=== PATIENT | male | born 1950 | race American Indian/Alaskan Native ===

== ENCOUNTER 2016-11-15 14:24 | Emergency (ER) | payer MEDICAID, OTHER ==
[~2016-11-15] VITALS: Ht 165.1 cm; Wt 59.9 kg
[2016-11-15 14:24] VITALS: BP_SYST 143
[2016-11-15 15:04] LABS: BASOPHILS % (AUTO) 0.5 % (0.0-2.0); EOSINOPHILS # (AUTO) 0.2 K/uL (0.0-0.4); EOSINOPHILS % (AUTO) 2.6 % (0.0-4.0); HEMATOCRIT 43.3 % (36-54); HEMOGLOBIN 14.2 g/dL (14.0-18.0); LYMPHOCYTES % (AUTO) 25.7 % (20.5-51.5); MEAN CORPUSCULAR HEMOGLOBIN 29 pg (27-31); MEAN CORPUSCULAR HGB CONC 33 % (32-36); MEAN CORPUSCULAR VOLUME 88 fL (79.0-98.0); MONOCYTES # (AUTO) 0.6 K/uL (0.0-1.0); MONOCYTES % (AUTO) 8.1 % (1.7-9.3); NEUTROPHILS # (AUTO) 5.1 K/uL (1.8-7.7); NEUTROPHILS % (AUTO) 63.1 % (40.0-70.0); PLATELET COUNT (AUTO) 241 K/uL (130-430); RED BLOOD CELL COUNT(AUTO) 4.93 MIL/uL (4.2-6.2); RED CELL DISTRIBUTION WIDTH 12.6 % (9.0-15.0); WHITE BLOOD COUNT (AUTO) 7.9 K/uL (4.8-10.8)
[2016-11-15 15:07] LABS: CALCIUM 8.5 mg/dL (8.4-11.0); CREATININE 0.75 mg/dL (0.55-1.30); POTASSIUM 3.7 mmol/L (3.5-5.1)
[2016-11-15 15:12] LABS: ALBUMIN 3.5 g/dL (3.4-4.8); TOTAL BILIRUBIN 0.4 mg/dL (0.0-1.0); TOTAL PROTEIN, SERUM 7.1 g/dL (6.4-8.3)
[2016-11-15 16:26] VITALS: BP_SYST 138
== END 2016-11-15 16:26 | disposition home or self-care (01) ==
LOC: SED 14:25
DX: J40 Bronchitis, not specified as acute or chronic (principal); Z88.0 Allergy status to penicillin; Z88.6 Allergy status to analgesic agent
CPT/HCPCS: 36415; 71010; 80053; 82550-TC; 83880; 84484; 85025; 85379; 85610-TC; 85730-TC; 93005; 99285

== ENCOUNTER 2018-10-10 11:33 | Inpatient (IN) | payer OTHER, MEDICAID ==
[~2018-10-10] VITALS: Ht 165.1 cm; Wt 59.9 kg
[2018-10-10] MEDS ORDERED: NACL 0.9% 1,000 ML IV ONE (11:47)
[2018-10-10 11:48] VITALS: BP_SYST 135
[2018-10-10] MEDS ORDERED: PANTOPRAZOLE SODIUM 40 MG/VIAL (PROTONIX) IVP ONE (12:00)
[2018-10-10] MEDS ORDERED: ASPIRIN 81 MG TAB.CHEW PO ONE (12:00)
[2018-10-10 12:06] LABS: BASOPHILS % (AUTO) 0.7 % (0.0-2.0); EOSINOPHILS # (AUTO) 0.1 K/uL (0.0-0.4); HEMATOCRIT 47.8 % (36-54); HEMOGLOBIN 15.9 g/dL (14.0-18.0); LYMPHOCYTES # (AUTO) 1.8 K/uL (1.0-5.5); LYMPHOCYTES % (AUTO) 33.6 % (20.5-51.5); MEAN CORPUSCULAR HEMOGLOBIN 30 pg (27-31); MEAN CORPUSCULAR HGB CONC 33 % (32-36); MEAN CORPUSCULAR VOLUME 89 fL (79.0-98.0); MONOCYTES # (AUTO) 0.5 K/uL (0.0-1.0); MONOCYTES % (AUTO) 8.4 % (1.7-9.3); NEUTROPHILS % (AUTO) 55.3 % (40.0-70.0); PLATELET COUNT (AUTO) 219 K/uL (130-430); RED BLOOD CELL COUNT(AUTO) 5.34 MIL/uL (4.2-6.2); RED CELL DISTRIBUTION WIDTH 13.5 % (9.0-15.0); WHITE BLOOD COUNT (AUTO) 5.4 K/uL (4.8-10.8)
[2018-10-10 12:14] LABS: ANION GAP 7 (5-15); CALCIUM 9.4 mg/dL (8.4-11.0); CHLORIDE 103 mmol/L (98-107); CREATININE 0.81 mg/dL (0.55-1.30); GFR AFRICAN AMERICAN 122 mL/min (>90); GLUCOSE 95 mg/dL (70-99); POTASSIUM 4.2 mmol/L (3.5-5.1); SODIUM SERUM 139 mmol/L (136-145); UREA NITROGEN, BLOOD 12 mg/dL (8-21)
[2018-10-10 12:19] LABS: PROTHROMBIN TIME 10.1 SECS (9.5-12.5)
[2018-10-10 12:30] LABS: ALANINE AMINOTRANSFERASE 35 U/L (12-78); ALBUMIN 3.7 g/dL (3.4-4.8); ASPARTATE AMINOTRANSFERASE 27 U/L (10-37); TOTAL BILIRUBIN 0.5 mg/dL (0.0-1.0)
[2018-10-10] MEDS ORDERED: FAMO-132 PO (12:35)
[2018-10-10] MEDS ORDERED: PRO40 PO (12:35)
[2018-10-10] MEDS ORDERED: LIP20 PO (12:35)
[2018-10-10] MEDS ORDERED: NITROGLYCERIN 1 INCH (GM) OINT. TP ONE (12:45)
[2018-10-10] MEDS ORDERED: fentaNYL CITRATE/PF 100 MCG/2 ML AMP IVP ONE (12:45)
[2018-10-10 13:44] VITALS: BP_SYST 117
[2018-10-10] MEDS ORDERED: ATORVASTATIN 20 MG TABLET PO ONE (16:00)
[2018-10-10 16:20] VITALS: BP_SYST 100
[2018-10-10] MEDS ORDERED: MORPHINE 4 MG/ML INJ. SYRINGE IVP PRN (19:45)
[2018-10-10] MEDS ORDERED: ONDANSETRON HCL 4 MG/2 ML VIAL IVP PRN (19:45)
[2018-10-10] MEDS ORDERED: MORPHINE 2 MG/ML INJ. SYRINGE IVP PRN (19:45)
[2018-10-10] MEDS ORDERED: fentaNYL CITRATE/PF 100 MCG/2 ML AMP IVP PRN ×2 (19:45)
[2018-10-10] MEDS ORDERED: ACETAMINOPHEN 325 MG TABLET PO PRN (19:45)
[2018-10-10 20:00] VITALS: BP_SYST 100
[2018-10-11 00:13] VITALS: BP_SYST 98
[2018-10-11 08:00] VITALS: BP_SYST 123
[2018-10-11] MEDS: FAMOTIDINE 20 MG TABLET PO SCH (08:28)
[2018-10-11] MEDS: ATORVASTATIN 20 MG TABLET PO SCH (08:28)
[2018-10-11] MEDS: PANTOPRAZOLE SODIUM 40 MG TAB PO SCH (08:28)
[2018-10-11 12:00] VITALS: BP_SYST 125
[2018-10-11 16:26] VITALS: BP_SYST 129
[2018-10-11 20:00] VITALS: BP_SYST 124
[2018-10-11] MEDS ORDERED: OMEPRAZOLE 20 MG CAPSULE.DR (PriLOSEC) ONE (22:04)
[2018-10-12 00:07] VITALS: BP_SYST 107
[2018-10-12] MEDS: PANTOPRAZOLE SODIUM 40 MG TAB PO SCH (08:06)
[2018-10-12] MEDS: FAMOTIDINE 20 MG TABLET PO SCH (08:06)
[2018-10-12] MEDS: ATORVASTATIN 20 MG TABLET PO SCH (08:06)
[2018-10-12 08:15] VITALS: BP_SYST 125
[2018-10-12] MEDS ORDERED: OMEPRAZOLE 20 MG CAPSULE.DR (PriLOSEC) PO SCH (09:00)
[2018-10-12 11:39] VITALS: BP_SYST 103
[2018-10-12 11:57] VITALS: BP_SYST 103
== END 2018-10-12 13:00 | disposition home or self-care (01) | DRG 392 ==
LOC: SED 11:33 → STU 12:57
PROVIDERS: ADMIT Internal Medicine Hospice and Palliative Medicine; ATTEND Internal Medicine Hospice and Palliative Medicine
DX: K21.9 Gastro-esophageal reflux disease without esophagitis (principal); E78.5 Hyperlipidemia, unspecified; I10 Essential (primary) hypertension; M19.011 Primary osteoarthritis, right shoulder; I07.1 Rheumatic tricuspid insufficiency; R73.03 Prediabetes; Y99.0 Civilian activity done for income or pay; Z79.899 Other long term (current) drug therapy; Z87.11 Personal history of peptic ulcer disease; Z87.891 Personal history of nicotine dependence; Z90.49 Acquired absence of other specified parts of digestive tract
CPT/HCPCS: 36415; 71045; 80053; 84484; 85025; 85610-TC; 85730-TC; 93005; 93306; 96361; 96374; 96375; 99285; C9113; G0378; J3010

== ENCOUNTER 2019-04-01 02:02 | Inpatient (IN) | payer OTHER, MEDICAID ==
[~2019-04-01] VITALS: Ht 165.1 cm; Wt 59.9 kg
[~2019-04-01 02:02] MED LIST: FAMO-132 PO; LIP20 PO; PRO40 PO
[2019-04-01 02:45] VITALS: BP_SYST 120
[2019-04-01] MEDS ORDERED: ONDANSETRON HCL 4 MG/2 ML VIAL IVP ONE (03:00)
[2019-04-01] MEDS ORDERED: NACL 0.9% 1,000 ML IV ONE ×2 (03:00→04:45)
[2019-04-01] MEDS ORDERED: PANTOPRAZOLE SODIUM 40 MG/VIAL (PROTONIX) IVP ONE (03:00)
[2019-04-01 03:56] LABS: BASOPHILS % (AUTO) 0.4 % (0.0-2.0); EOSINOPHILS % (AUTO) 0.1 % (0.0-4.0); HEMATOCRIT 45.9 % (36-54); HEMOGLOBIN 15.5 g/dL (14.0-18.0); LYMPHOCYTES # (AUTO) 1.1 K/uL (1.0-5.5); LYMPHOCYTES % (AUTO) 10.7 % (20.5-51.5); MEAN CORPUSCULAR HEMOGLOBIN 31 pg (27-31); MEAN CORPUSCULAR HGB CONC 34 % (32-36); MEAN CORPUSCULAR VOLUME 91 fL (79.0-98.0); MONOCYTES # (AUTO) 0.4 K/uL (0.0-1.0); MONOCYTES % (AUTO) 3.7 % (1.7-9.3); NEUTROPHILS # (AUTO) 8.7 K/uL (1.8-7.7); NEUTROPHILS % (AUTO) 85.1 % (40.0-70.0); PLATELET COUNT (AUTO) 208 K/uL (130-430); RED BLOOD CELL COUNT(AUTO) 5.07 MIL/uL (4.2-6.2); RED CELL DISTRIBUTION WIDTH 13.7 % (9.0-15.0); WHITE BLOOD COUNT (AUTO) 10.3 K/uL (4.8-10.8)
[2019-04-01 04:01] LABS: CALCIUM 9.1 mg/dL (8.4-11.0); CREATININE 0.83 mg/dL (0.55-1.30)
[2019-04-01 04:05] LABS: INR 1.1 (0.80-1.20)
[2019-04-01 04:07] LABS: TOTAL BILIRUBIN 0.5 mg/dL (0.0-1.0)
[2019-04-01 08:03] LABS: BILIRUBIN,URINE NEGATIVE (NEGATIVE); BLOOD, URINE NEGATIVE (NEGATIVE); CLARITY/URINE CLEAR (CLEAR); COLOR,URINE YELLOW (YELLOW); GLUCOSE,URINE NEGATIVE (NEGATIVE); KETONES,URINE 1+ (NEGATIVE); LEUKOCYTE ESTERASE ,URINE NEGATIVE (NEGATIVE); NITRITE, URINE NEGATIVE (NEGATIVE); PROTEIN URINE NEGATIVE (NEGATIVE); UROBILINOGEN,URINE 0.2 (0.2-1.0)
[2019-04-01 08:30] VITALS: BP_SYST 96
[2019-04-01] MEDS ORDERED: PANTOPRAZOLE SODIUM 40 MG/VIAL (PROTONIX) IV ONE (10:00)
[2019-04-01] MEDS: D5/0.45 NS 1,000 ML IV SCH ×3 (10:36→20:16)
[2019-04-01] MEDS ORDERED: FLU VACC QS2019-20 36MOS UP/PF 60 MCG/0.5 ML SYRINGE I.M. PRN (11:15)
[2019-04-01] MEDS ORDERED: FLU VACC TS2019(65UP)/MF59C/PF 45 MCG/0.5 ML SYRINGE I.M. PRN (11:15)
[2019-04-01 12:18] VITALS: BP_SYST 104
[2019-04-01] MEDS ORDERED: LORazepam 2 MG/ML VIAL IVP PRN (13:00)
[2019-04-01] MEDS ORDERED: ONDANSETRON HCL 4 MG/2 ML VIAL IVP PRN (13:00)
[2019-04-01] MEDS ORDERED: ACETAMINOPHEN 325 MG TABLET PO PRN (13:00)
[2019-04-01 20:15] VITALS: BP_SYST 96
[2019-04-01] MEDS: PANTOPRAZOLE SODIUM 40 MG TAB PO SCH (20:15)
[2019-04-01 23:41] VITALS: BP_SYST 106
[2019-04-02] MEDS ORDERED: SIMETHICONE 40 MG/0.6 ML ML ONE (06:23)
[2019-04-02] MEDS: MIDAZOLAM HCL 5 MG/5 ML VIAL ONE ×2 (06:24→07:10)
[2019-04-02] MEDS: MEPERIDINE HCL/PF 100 MG/ML AMP ONE ×2 (06:24→07:10)
[2019-04-02 06:51] LABS: BASOPHILS % (AUTO) 0.3 % (0.0-2.0); EOSINOPHILS # (AUTO) 0.1 K/uL (0.0-0.4); EOSINOPHILS % (AUTO) 1.1 % (0.0-4.0); HEMATOCRIT 39.5 % (36-54); HEMOGLOBIN 13.4 g/dL (14.0-18.0); LYMPHOCYTES # (AUTO) 1.7 K/uL (1.0-5.5); LYMPHOCYTES % (AUTO) 19.6 % (20.5-51.5); MEAN CORPUSCULAR HEMOGLOBIN 31 pg (27-31); MEAN CORPUSCULAR HGB CONC 34 % (32-36); MEAN CORPUSCULAR VOLUME 91 fL (79.0-98.0); MONOCYTES # (AUTO) 0.8 K/uL (0.0-1.0); MONOCYTES % (AUTO) 8.6 % (1.7-9.3); NEUTROPHILS # (AUTO) 6.2 K/uL (1.8-7.7); NEUTROPHILS % (AUTO) 70.4 % (40.0-70.0); PLATELET COUNT (AUTO) 186 K/uL (130-430); RED BLOOD CELL COUNT(AUTO) 4.35 MIL/uL (4.2-6.2); RED CELL DISTRIBUTION WIDTH 13.9 % (9.0-15.0); WHITE BLOOD COUNT (AUTO) 8.9 K/uL (4.8-10.8)
[2019-04-02 07:12] LABS: INR 1.1 (0.80-1.20)
[2019-04-02 07:20] LABS: CREATININE 0.7 mg/dL (0.55-1.30); POTASSIUM 3.4 mmol/L (3.5-5.1)
[2019-04-02 08:00] VITALS: BP_SYST 99
[2019-04-02 08:30] LABS: CALCIUM 7.7 mg/dL (8.4-11.0)
[2019-04-02] MEDS ORDERED: ATORVASTATIN 20 MG TABLET PO SCH (09:00)
[2019-04-02] MEDS ORDERED: PANTOPRAZOLE SODIUM 40 MG/VIAL (PROTONIX) IV SCH (09:00)
[2019-04-02] MEDS: PANTOPRAZOLE SODIUM 40 MG TAB PO SCH (09:08)
[2019-04-02] MEDS: D5/0.45 NS 1,000 ML IV SCH (12:15)
[2019-04-02 12:47] VITALS: BP_SYST 107
[2019-04-02 14:21] VITALS: BP_SYST 101
== END 2019-04-02 15:20 | disposition home or self-care (01) | DRG 377 ==
LOC: SED 02:02 → SMU 06:18
PROVIDERS: ADMIT Preventive Medicine Preventive Medicine/Occupational Environmental Medicine; ATTEND Preventive Medicine Preventive Medicine/Occupational Environmental Medicine
PROC: 0DB68ZX Excision of Stomach, Via Natural or Artificial Opening Endoscopic, Diagnostic (ICD-10-PCS; 2019-04-02)
PROC: 0DB58ZX Excision of Esophagus, Via Natural or Artificial Opening Endoscopic, Diagnostic (ICD-10-PCS; principal; 2019-04-02 07:00)
DX: K29.71 Gastritis, unspecified, with bleeding (principal); G93.41 Metabolic encephalopathy; K21.9 Gastro-esophageal reflux disease without esophagitis; E78.00 Pure hypercholesterolemia, unspecified; E78.5 Hyperlipidemia, unspecified; F10.10 Alcohol abuse, uncomplicated; K21.0 Gastro-esophageal reflux disease with esophagitis; K44.9 Diaphragmatic hernia without obstruction or gangrene; K64.9 Unspecified hemorrhoids; N40.0 Benign prostatic hyperplasia without lower urinary tract symptoms; R73.9 Hyperglycemia, unspecified; Z87.11 Personal history of peptic ulcer disease; Z88.0 Allergy status to penicillin; Z88.5 Allergy status to narcotic agent; Z79.899 Other long term (current) drug therapy
CPT/HCPCS: 36415; 43239; 70450-TC; 80048; 80053; 81003; 83690-TC; 84484; 85025; 85610-TC; 85730-TC; 87081; 88305; 88312; 88313; 93005; 96361; 96374; 96375; 99285; C9113; G0482; J2175; J2250; J2405; J7030

== ENCOUNTER 2019-06-10 06:32 | Emergency (ER) | payer MEDICAID, OTHER ==
[~2019-06-10] VITALS: Ht 165.1 cm; Wt 59.9 kg
[2019-06-10 06:32] VITALS: BP_SYST 138
[~2019-06-10 06:32] MED LIST changes: -FAMO-132 PO
--- NOTE | 2019-06-10 06:38 | NUR ---
Placed in room 1 . Placed on quality assurance monitor chassis, blood pressure machine and pulse oximeter. To gown for exam. Side rails up.
[2019-06-10] MEDS ORDERED: ASPIRIN 81 MG TAB.CHEW PO ONE (07:00)
--- NOTE | 2019-06-10 07:14 | NUR ---
report received from [facility]. Pt is in stable condition
--- NOTE | 2019-06-10 07:20 | NUR ---
pt arrives from [facility] w/ c/o chest pain and congestion 09/16. Pt is currently afebrile. EKG done and given to . beef pusher placed
[2019-06-10 07:21] LABS: BASOPHILS % (AUTO) 0.8 % (0.0-2.0); EOSINOPHILS # (AUTO) 0.2 K/uL (0.0-0.4); EOSINOPHILS % (AUTO) 3.7 % (0.0-4.0); HEMATOCRIT 45.6 % (36-54); HEMOGLOBIN 14.9 g/dL (14.0-18.0); LYMPHOCYTES % (AUTO) 41.6 % (20.5-51.5); MEAN CORPUSCULAR HEMOGLOBIN 30 pg (27-31); MEAN CORPUSCULAR HGB CONC 33 % (32-36); MEAN CORPUSCULAR VOLUME 91 fL (79.0-98.0); MONOCYTES # (AUTO) 0.4 K/uL (0.0-1.0); MONOCYTES % (AUTO) 7.5 % (1.7-9.3); NEUTROPHILS # (AUTO) 2.2 K/uL (1.8-7.7); NEUTROPHILS % (AUTO) 46.4 % (40.0-70.0); PLATELET COUNT (AUTO) 198 K/uL (130-430); RED BLOOD CELL COUNT(AUTO) 4.99 MIL/uL (4.2-6.2); RED CELL DISTRIBUTION WIDTH 13.7 % (9.0-15.0); WHITE BLOOD COUNT (AUTO) 4.7 K/uL (4.8-10.8)
--- NOTE | 2019-06-10 07:23 | NUR ---
ER at bedside examining patient.
[2019-06-10 07:32] LABS: CALCIUM 8.7 mg/dL (8.4-11.0); CREATININE 0.77 mg/dL (0.55-1.30); POTASSIUM 3.8 mmol/L (3.5-5.1)
[2019-06-10 07:38] LABS: ALBUMIN 3.4 g/dL (3.4-4.8); TOTAL BILIRUBIN 0.4 mg/dL (0.0-1.0)
--- NOTE | 2019-06-10 07:40 | NUR ---
medicated the pt w/ Aspirin per MD order
[2019-06-10] MEDS ORDERED: BELLADONNA ALKALOIDS/PHENOBARB 16.2 MG TABLET PO ONE (07:45)
[2019-06-10] MEDS ORDERED: MAG-AL HYDROX/SIMETH 30 ML UDC PO ONE (07:45)
[2019-06-10] MEDS ORDERED: LIDOCAINE VISCOUS 2%, 15 ML UDC MM ONE (07:45)
[2019-06-10] MEDS ORDERED: DICYCLOMINE HCL 10 MG/5 ML SOLUTION PO ONE (08:15)
[2019-06-10 08:52] LABS: PROTHROMBIN TIME 10.3 SECS (9.5-12.5)
[2019-06-10 09:31] VITALS: BP_SYST 101
--- NOTE | 2019-06-10 09:33 | NUR ---
Patient given written and verbal discharge instructions and verbalizes understanding. ER MD discussed with patient the results and treatment provided. Patient in stable condition. ID arm band removed. Patient educated on pain management and to follow up with PMD. Pain Scale 3/10. Opportunity for questions provided and answered. Medication side effect fact sheet provided.
== END 2019-06-10 09:31 | disposition home or self-care (01) ==
LOC: SED 06:32
DX: R73.9 Hyperglycemia, unspecified (principal); R07.89 Other chest pain; K21.9 Gastro-esophageal reflux disease without esophagitis; E78.00 Pure hypercholesterolemia, unspecified; Z88.0 Allergy status to penicillin; Z88.6 Allergy status to analgesic agent
CPT/HCPCS: 36415; 71045; 80053; 82550; 83880; 84484; 85025; 85379; 85610; 93005; 99284; J2001

== ENCOUNTER 2021-11-24 03:22 | Emergency (ER) | payer OTHER, MEDICAID ==
[~2021-11-24] VITALS: Ht 165.1 cm; Wt 59.0 kg
[2021-11-24 03:22] VITALS: BP_SYST 150
--- NOTE | 2021-11-24 03:22 | NUR ---
BROUGHT IN BY [facility] AND PLACED IN TRIAGE TENT. AWAITING AVAILABLE ER BED.
--- NOTE | 2021-11-24 03:25 | NUR ---
DR DOOO OUT TO TENT TO EVALUATE PT.
--- NOTE | 2021-11-24 03:40 | NUR ---
PT STATES HE HAS RECENT TRAVEL TO [facility] AND NOW WITH COUGH, HEADACHES,WEAKNESS. PT STATES HE WENT TO [facility] EARLY AND WAS DISCHARGED AT 2200, DX WITH BRONCHITIS, GIVEN PRESCRIPTION BUT WAS UNABLE TO FILL SCRIPT DUE TO PHARMACY BEING CLOSED. STILL DOES NOT FEEL GOOD.
--- NOTE | 2021-11-24 05:24 | NUR ---
DR RUGGIERO OUT TO TENT TO SPEAK WITH PT.
--- NOTE | 2021-11-24 06:01 | NUR ---
Patient given written and verbal discharge instructions and verbalizes understanding. ER MD discussed with patient the results and treatment provided. Patient in stable condition. ID arm band removed. Rx of NONE given. Patient educated on pain management and to follow up with PMD. Pain Scale 0/10. Opportunity for questions provided and answered. Medication side effect fact sheet provided.
--- NOTE | 2021-11-24 06:02 | NUR ---
PT STATES HE DOES NOT HAVE A RIDE HOME, ATTEMPTING TO GET A TAXI FOR THE PT. WILL MONITOR.
== END 2021-11-24 06:02 | disposition home or self-care (01) ==
LOC: SED 03:22
DX: B34.9 Viral infection, unspecified (principal); K21.9 Gastro-esophageal reflux disease without esophagitis; Z88.0 Allergy status to penicillin; Z88.5 Allergy status to narcotic agent; Z79.899 Other long term (current) drug therapy; Z20.822 Contact with and (suspected) exposure to COVID-19
CPT/HCPCS: 36415; 71045; 93005; 99285

== ENCOUNTER 2022-05-23 15:46 | Emergency (ER) | payer OTHER, MEDICAID ==
[~2022-05-23] VITALS: Ht 165.1 cm; Wt 59.9 kg
[2022-05-23 15:47] VITALS: BP_SYST 143
--- NOTE | 2022-05-23 15:48 | NUR ---
Patient triaged and placed in waiting room. VSS and patient appears in no acute distress at this time. Accompanied by SELF, awaiting available bed, and MD notified of need for MSE.
--- NOTE | 2022-05-23 16:01 | NUR ---
PT STATES THAT HE HAD A PRESSURE LIKE PAIN IN EPIGASTRIC AREA ON 05/18 AND 05/22, PT STATES SLIGHT RESIDUAL PAIN TO EPIGASTRIC AREA. STATES PAIN A 4/10 AT THIS TIME. DENIES ANY NAUSEA OR VOMITING.
--- NOTE | 2022-05-23 16:05 | NUR ---
DR ESQUIVEL OUT TO TRIAGE TO EVALUATE PT.
[2022-05-23] MEDS ORDERED: OMEPRAZOLE Non-Formulary 20 MG CAPSULE.DR PO ONE (16:15)
[2022-05-23] MEDS ORDERED: PANTOPRAZOLE SODIUM 40 MG TAB PO ONE (16:33)
[2022-05-23 17:57] LABS: BASOPHILS % (AUTO) 0.8 % (0.0-2.0); EOSINOPHILS # (AUTO) 0.1 K/uL (0.0-0.4); EOSINOPHILS % (AUTO) 2.1 % (0.0-4.0); HEMATOCRIT 40.5 % (36-54); HEMOGLOBIN 13.4 g/dL (14.0-18.0); LYMPHOCYTES # (AUTO) 2.2 K/uL (1.0-5.5); LYMPHOCYTES % (AUTO) 39.5 % (20.5-51.5); MEAN CORPUSCULAR HEMOGLOBIN 30 pg (27-31); MEAN CORPUSCULAR HGB CONC 33 % (32-36); MEAN CORPUSCULAR VOLUME 91 fL (79.0-98.0); MONOCYTES # (AUTO) 0.5 K/uL (0.0-1.0); MONOCYTES % (AUTO) 8.5 % (1.7-9.3); NEUTROPHILS # (AUTO) 2.7 K/uL (1.8-7.7); NEUTROPHILS % (AUTO) 49.1 % (40.0-70.0); PLATELET COUNT (AUTO) 233 K/uL (130-430); RED BLOOD CELL COUNT(AUTO) 4.44 MIL/uL (4.2-6.2); RED CELL DISTRIBUTION WIDTH 13.3 % (9.0-15.0); WHITE BLOOD COUNT (AUTO) 5.6 K/uL (4.8-10.8)
[2022-05-23 17:58] LABS: ANION GAP 6 (5-15); CALCIUM 9.1 mg/dL (8.4-11.0); CHLORIDE 107 mmol/L (98-107); CREATININE 0.88 mg/dL (0.55-1.30); GLUCOSE 116 mg/dL (70-99); UREA NITROGEN, BLOOD 17 mg/dL (8-21)
[2022-05-23 18:06] LABS: ALANINE AMINOTRANSFERASE 26 U/L (12-78); ALBUMIN 3.7 g/dL (3.4-4.8); ASPARTATE AMINOTRANSFERASE 22 U/L (10-37); LIPASE 138 U/L (73-393); TOTAL BILIRUBIN 0.3 mg/dL (0.0-1.0)
[2022-05-23] MEDS ORDERED: OMEP40CA20 PO (19:29)
[2022-05-23 19:59] VITALS: BP_SYST 143
--- NOTE | 2022-05-23 19:59 | NUR ---
Patient given written and verbal discharge instructions and verbalizes understanding. ER MD discussed with patient the results and treatment provided. Patient in stable condition. ID arm band removed. Rx of omeprazole given. Patient educated on pain management and to follow up with PMD. Pain Scale 2/10 Opportunity for questions provided and answered. Medication side effect fact sheet provided.
== END 2022-05-23 19:59 | disposition home or self-care (01) ==
LOC: SED 15:46
DX: R10.13 Epigastric pain (principal); R07.89 Other chest pain; K21.9 Gastro-esophageal reflux disease without esophagitis; I10 Essential (primary) hypertension; Z88.0 Allergy status to penicillin; Z88.6 Allergy status to analgesic agent; Z79.899 Other long term (current) drug therapy
CPT/HCPCS: 36415; 80053; 83690; 84484; 85025; 99283